=== PATIENT | female | born 1995 | race Caucasian/White ===

== ENCOUNTER 2017-11-03 17:19 | Emergency (ER) | payer MEDICAID ==
[2017-11-03 17:19] VITALS: BMI 25.8
[2017-11-03 17:39] VITALS: BP 116/73; PULSE 70; RESP 16; TEMP 98.3; O2SAT 100
--- NOTE | 2017-11-03 19:24 | ED PDOC ---
HPI: Female Pain Time Seen by Provider: 11/03/17 18:15 Chief Complaint (Nursing): Female Genitourinary Chief Complaint (Provider): Female Genitourinary History Per: Patient History/Exam Limitations: no limitations Onset/Duration Of Symptoms: Days (x4) Current Symptoms Are (Timing): Still Present Additional Complaint(s): 22 year old female presents to the emergency department with a complaint of blood tinged urine intermittently for the past 4 days. Patient denies urinary frequency, urgency, vomiting, nausea, back/flank pain, abdominal pain, dysuria, or fever. Patient noted having similar symptoms 3 years ago and was treated for a UTI however at that time she also had dysuria and urinary urgency. Patient denies taking any medications prior to arrival for symptoms. Also reports no personal or family history of kidney stones. Patient also reports atraumatic left knee pain for the past 3 days that worsens with ambulation. Patient denies any history of knee injury in the past. LMP: 10/10/17 PMD: Antonio Penny MD Abnormal Vaginal Bleeding: No Past Medical History Reviewed: Historical Data, Nursing Documentation, Vital Signs Vital Signs: Last Vital Signs Temp 98.3 F 11/03/17 17:35 Pulse 70 11/03/17 17:35 Resp 16 11/03/17 17:35 BP 116/73 11/03/17 17:35 Pulse Ox 100 11/03/17 17:35 - Medical History PMH: Anemia, Asthma (childhood) - Surgical History Surgical History: Denies: No Surg Hx Other surgeries: neck cyst removed - Family History Family History: States: Unknown Family Hx - Living Arrangements Living Arrangements: With Family - Social History Current smoker - smoking cessation education provided: No Alcohol: Social Drugs: Denies - Home Medications Home Medications: Ambulatory Orders Medication Instructions Recorded Iron,Carb/Vit C/Vit B12/Folic 1 tab DAILY 10/21/15 [Iron 100 Plus Tablet] Naproxen [Naprosyn Tab] 375 mg PO BID PRN #15 tab 10/21/15 Famotidine [Pepcid] 40 mg PO DAILY PRN #14 tab 10/23/16 Ondansetron [Zofran] 4 mg PO Q8H PRN #20 tab 10/23/16 - Allergies Allergies/Adverse Reactions: Allergies Allergy/AdvReac Type Severity Reaction Status Date / Time No Known Allergies Allergy Verified 10/23/16 21:37 Review of Systems ROS Statement: Except As Marked, All Systems Reviewed And Found Negative Constitutional: Negative for: Fever Cardiovascular: Negative for: Chest Pain Respiratory: Negative for: Cough, Shortness of Breath Gastrointestinal: Negative for: Nausea, Vomiting, Abdominal Pain Genitourinary Female: Positive for: Hematuria. Negative for: Dysuria, Frequency Musculoskeletal: Positive for: Leg Pain (left knee). Negative for: Back Pain Skin: Negative for: Rash Neurological: Negative for: Weakness, Numbness Physical Exam - Reviewed Nursing Documentation Reviewed: Yes Vital Signs Reviewed: Yes - Physical Exam Appears: Positive for: Well, Non-toxic, No Acute Distress Head Exam: Positive for: ATRAUMATIC, NORMOCEPHALIC Skin: Positive for: Normal Color, Warm, Dry Eye Exam: Positive for: EOMI, PERRL Neck: Positive for: Supple Cardiovascular/Chest: Positive for: Regular Rate, Rhythm. Negative for: Bradycardia, Tachycardia Respiratory: Positive for: Normal Breath Sounds. Negative for: Decreased Breath Sounds, Accessory Muscle Use, Respiratory Distress Gastrointestinal/Abdominal: Positive for: Bowel Sounds (active x4), Soft. Negative for: Tenderness, Mass, Distended, Guarding Back: Negative for: L CVA Tenderness, R CVA Tenderness, Decreased ROM Extremity: Positive for: Normal ROM (of left hip, knee, and ankle.), Tenderness (to medial left knee). Negative for: Calf Tenderness, Deformity, Swelling (or ecchymosis, effusion or crepitus of left knee), Other (drawer sign anteriorly and posteriorly of left knee. (-) distal NV deficit of left lower extremity.) Neurologic/Psych: Positive for: Alert (x3), Oriented, Gait (steady in ED). Negative for: Motor/Sensory Deficits - ECG O2 Sat by Pulse Oximetry: 100 (RA) Pulse Ox Interpretation: Normal Medical Decision Making Medical Decision Making: Initial Impression: Hematuria Initial Plan: * Urine * Urine culture * UA Time: 1944 --UA: positive for trace blood but not consistent with UTI. History and PE also not consistent with renal colic. Time: 1953 --Upon provider reevaluation, patient is medically stable and requires no further treatment in the ED at this time. Provider informed patient that urine culture will require 48 hours minimally to grow and advised to call for results in 2 days to see if antibiotics would be necessary. Patient will be discharged home. Counseling was provided and all questions were answered regarding diagnosis and need for follow up with urology if symptoms persist or worsen. There is agreement to discharge plan. Return if symptoms persist or worsen. Clinical Impression: Hematuria, Acute Knee Pain Scribe Attestation: Documented by Sara Langston, acting as a scribe for Jenny Cortes PA-C. Provider Scribe Attestation: All medical record entries made by the Scribe were at my direction and personally dictated by me. I have reviewed the chart and agree that the record accurately reflects my personal performance of the history, physical exam, medical decision making, and the department course for this patient. I have also personally directed, reviewed, and agree with the discharge instructions and disposition. Disposition - Clinical Impression Clinical Impression: Hematuria, Knee pain, left - Patient ED Disposition Is Patient to be Admitted: No Counseled Patient/Family Regarding: Diagnosis, Need For Followup - Disposition Referrals: Grabiel Farrell MD [Medical Doctor] - Disposition: Routine/Home Disposition Time: 19:54 Condition: FAIR Additional Instructions: FOLLOW UP URINE CULTURE RESULTS IN 48 HOURS. Instructions: Blood in the Urine (Hematuria) in Adults, Knee Pain Forms: [facility] (Gabonese) Print Language: DANISH - POA Present On Arrival: None
[2017-11-03 19:32] LABS: SQUAMOUS EPITHIAL < 1 /hpf (0-5); URINE BACTERIA RARE (<OCC); URINE BILIRUBIN NEGATIVE (NEGATIVE); URINE BLOOD SMALL (NEGATIVE); URINE CLARITY SLIGHTY-CLOUDY (Clear); URINE COLOR YELLOW (YELLOW); URINE GLUCOSE (UA) NEG (Normal); URINE LEUKOCYTE ESTERASE NEG Leu/uL (Negative); URINE NITRATE NEGATIVE (NEGATIVE); URINE PROTEIN NEGATIVE (NEGATIVE)
== END 2017-11-03 20:10 | disposition home or self-care (01) ==
LOC: H.ER 17:19
DX: M25.562 Pain in left knee (principal); J45.909 Unspecified asthma, uncomplicated

== ENCOUNTER 2018-01-20 12:36 | Emergency (ER) | payer MEDICAID ==
[2018-01-20 12:38] VITALS: BMI 25.8
[2018-01-20 12:47] VITALS: BP 158/72; PULSE 79; RESP 20; TEMP 97.9; O2SAT 99
--- NOTE | 2018-01-20 13:59 | ED PDOC ---
HPI: Female Pain Time Seen by Provider: 01/20/18 12:52 Chief Complaint (Nursing): Female Genitourinary Chief Complaint (Provider): Dysuria, Hematuria and Frequency History Per: Patient History/Exam Limitations: no limitations Onset/Duration Of Symptoms: Hrs Current Symptoms Are (Timing): Still Present Severity: None Associated Symptoms: Urinary Symptoms (dysuria, fruquemc, hematuria). denies: Fever, Nausea, Vomiting, Back Pain, Chest Pain Alleviating Factors: None Additional Complaint(s): 22 year old female presents to the emergency department complaining of hematuria , frequency and dysuris which began this morning. Patient states that on January 09 her period began and it ended yesterday. She further reports that this is unsual for her as her period usually lasts 4-5 days. She also states that her bleeding was heavier than usual and on a normal period she usually sues 4-5 pads but this episode she used 5-6 pads per day. Patient only reports pain with urination. Denies current vaginal bleeding, weakness, shortness of breast, chest pain, fever, back pain, flank pain. Abnormal Vaginal Bleeding: Yes Past Medical History Reviewed: Historical Data, Nursing Documentation, Vital Signs Vital Signs: Last Vital Signs Temp 97.9 F 01/20/18 12:45 Pulse 79 01/20/18 12:45 Resp 20 01/20/18 12:45 BP 158/72 H 01/20/18 12:45 Pulse Ox 99 01/20/18 12:45 - Medical History PMH: Anemia, Asthma (childhood) - Surgical History Surgical History: No Surg Hx - Family History Family History: States: Unknown Family Hx - Living Arrangements Living Arrangements: With Family - Social History Current smoker - smoking cessation education provided: No Ex-Smoker (has not smoked in the last 12 months): No Alcohol: None - Home Medications Home Medications: Ambulatory Orders Medication Instructions Recorded Iron,Carb/Vit C/Vit B12/Folic 1 tab DAILY 10/21/15 [Iron 100 Plus Tablet] Naproxen [Naprosyn Tab] 375 mg PO BID PRN #15 tab 10/21/15 Famotidine [Pepcid] 40 mg PO DAILY PRN #14 tab 10/23/16 Ondansetron [Zofran] 4 mg PO Q8H PRN #20 tab 10/23/16 Nitrofurantoin Macrocrystals 100 mg PO BID #14 cap 01/20/18 [Macrobid] Phenazopyridine [Pyridium] 200 mg PO BID #6 tab 01/20/18 - Allergies Allergies/Adverse Reactions: Allergies Allergy/AdvReac Type Severity Reaction Status Date / Time No Known Allergies Allergy Verified 10/23/16 21:37 Review of Systems Constitutional: Negative for: Fever, Weakness Cardiovascular: Negative for: Chest Pain Respiratory: Negative for: Shortness of Breath Gastrointestinal: Negative for: Nausea, Vomiting Genitourinary Female: Positive for: Dysuria, Frequency, Hematuria Musculoskeletal: Negative for: Back Pain Physical Exam - Reviewed Nursing Documentation Reviewed: Yes Vital Signs Reviewed: Yes - Physical Exam Appears: Positive for: Well, Non-toxic, No Acute Distress (Patient is talking on the phone) Skin: Positive for: Normal Color, Warm. Negative for: Rash Eye Exam: Positive for: Normal appearance Gastrointestinal/Abdominal: Positive for: Normal Exam, Bowel Sounds, Soft. Negative for: Tenderness, Mass, Guarding, Rebound Back: Positive for: Normal Inspection. Negative for: L CVA Tenderness, R CVA Tenderness, Vertebral Tenderness Neurologic/Psych: Positive for: Alert, Oriented - Laboratory Results Urine POC: Negative Urine dip results: Positive for: Leukocyte Esterase (small), Blood (large), Protein (300). Negative for: Nitrate, Ketones, Glucose, Bilirubin - ECG O2 Sat by Pulse Oximetry: 99 (RA) Pulse Ox Interpretation: Normal Medical Decision Making Medical Decision Makin Initial Impression 22 year old female presenting with frequency, hematuria, dysuria Initial Plan: * Udip * Urine Culture * Reevaluation Documented by Katelyn Samuel acting as a scribe for Silvio Hicks PA-C.. All medical record entries made by the Scribe were at my direction and personally dictated by me. I have reviewed the chart and agree that the record accurately reflects my personal performance of the history, physical exam, medical decision making, and the department course for this patient. I have also personally directed, reviewed, and agree with the discharge instructions and disposition. Disposition - Clinical Impression Clinical Impression: UTI (urinary tract infection) - Patient ED Disposition Is Patient to be Admitted: No Counseled Patient/Family Regarding: Studies Performed, Diagnosis - Disposition Referrals: [facility] [Outside] Disposition: Routine/Home Disposition Time: 14:00 Condition: STABLE Additional Instructions: Follow up with your doctor for further evaluation. Return to ED immediately if symptoms worsen. Prescriptions: Nitrofurantoin Macrocrystals [Macrobid] 100 mg PO BID #14 cap Phenazopyridine [Pyridium] 200 mg PO BID #6 tab Instructions: Urinary Tract Infection, Adult (DC) Forms: [employer] [employer] (Bahamian) Print Language: FILIPINO - POA Present On Arrival: None
== END 2018-01-20 13:51 | disposition home or self-care (01) ==
LOC: H.ER 12:36
DX: N39.0 Urinary tract infection, site not specified (principal)

== ENCOUNTER 2018-07-05 09:17 | Emergency (ER) | payer MEDICAID ==
[2018-07-05 09:27] VITALS: BMI 25.6
[2018-07-05 09:33] VITALS: O2SAT 98
--- NOTE | 2018-07-05 11:08 | ED PDOC ---
HPI: Female Pain Time Seen by Provider: 07/05/18 09:47 Chief Complaint (Nursing): Female Genitourinary Chief Complaint (Provider): Female Genitourinary History Per: Patient History/Exam Limitations: no limitations Onset/Duration Of Symptoms: Days (x 2) Current Symptoms Are (Timing): Still Present Quality Of Discomfort: "Pain" Associated Symptoms: Urinary Symptoms Additional Complaint(s): 22 year old female with a history of UTIs presents to the ED with dysuria, hematuria and lower abdominal pain since yesterday. The patient denies a fever, nausea and vomiting. Offers no other complaints. PMD: Dr. Trixie Barclay Past Medical History Vital Signs: Last Vital Signs Temp 97.3 F L 07/05/18 09:25 Pulse 64 07/05/18 09:25 Resp 16 07/05/18 09:25 BP 120/75 07/05/18 09:25 Pulse Ox 98 07/05/18 09:31 - Medical History PMH: Anemia, Asthma (childhood) Denies: Chronic Kidney Disease - Surgical History Surgical History: No Surg Hx - Family History Family History: States: Unknown Family Hx - Home Medications Home Medications: Ambulatory Orders Medication Instructions Recorded Nitrofurantoin Macrocrystals 100 mg PO BID #13 cap 07/05/18 [Macrobid] Phenazopyridine [Pyridium] 200 mg PO TID PRN #6 tab 07/05/18 - Allergies Allergies/Adverse Reactions: Allergies Allergy/AdvReac Type Severity Reaction Status Date / Time No Known Allergies Allergy Verified 07/05/18 09:30 Review of Systems ROS Statement: Except As Marked, All Systems Reviewed And Found Negative Gastrointestinal: Positive for: Abdominal Pain (mild lower ) Genitourinary Female: Positive for: Dysuria, Hematuria Physical Exam - Reviewed Nursing Documentation Reviewed: Yes Vital Signs Reviewed: Yes - Physical Exam Appears: Positive for: Non-toxic, No Acute Distress Head Exam: Positive for: ATRAUMATIC, NORMAL INSPECTION, NORMOCEPHALIC Skin: Positive for: Normal Color, Warm, Dry Eye Exam: Positive for: EOMI, Normal appearance, PERRL Neck: Positive for: Normal, Painless ROM, Supple Cardiovascular/Chest: Positive for: Regular Rate, Rhythm. Negative for: Murmur Respiratory: Positive for: Normal Breath Sounds. Negative for: Respiratory Distress Gastrointestinal/Abdominal: Positive for: Soft, Tenderness (mild suprapubic tenderness). Negative for: Guarding, Rebound Extremity: Positive for: Normal ROM (x 4). Negative for: Deformity Neurologic/Psych: Positive for: Alert, Oriented. Negative for: Motor/Sensory Deficits - ECG O2 Sat by Pulse Oximetry: 98 (RA) Pulse Ox Interpretation: Normal Medical Decision Making Medical Decision Makin:49 Impression: abdominal pain, dysuria and hematuria Initial Plan: --Urine preg --Urine dip --Urine cx --UA Scribe Attestation: Documented by Marjan Killian acting as a scribe for Vonda Ramsey MD Provider Scribe Attestation: All medical record entries made by the Scribe were at my direction and personally dictated by me. I have reviewed the chart and agree that the record accurately reflects my personal performance of the history, physical exam, medical decision making, and the department course for this patient. I have also personally directed, reviewed, and agree with the discharge instructions and disposition. Disposition - Clinical Impression Clinical Impression: Urinary tract infection - Disposition Disposition: Routine/Home Disposition Time: 12:00 Condition: STABLE Additional Instructions: FOLLOW-UP WITH PMD WITHIN 2 DAYS FOR REEVALUATION. Prescriptions: Nitrofurantoin Macrocrystals [Macrobid] 100 mg PO BID #13 cap Phenazopyridine [Pyridium] 200 mg PO TID PRN #6 tab PRN Reason: Bladder Spasm Instructions: Urinary Tract Infections in Adults Forms: [facility] (Egyptian), [facility] ED School/Work Excuse
[2018-07-05 11:12] LABS: SQUAMOUS EPITHIAL < 1 /hpf (0-5); URINE BACTERIA RARE (<OCC); URINE BILIRUBIN NEGATIVE (NEGATIVE); URINE BLOOD MODERATE (NEGATIVE); URINE CLARITY SLIGHTY-CLOUDY (Clear); URINE COLOR STRAW (YELLOW); URINE GLUCOSE (UA) NEG (Normal); URINE LEUKOCYTE ESTERASE LARGE Leu/uL (Negative); URINE PROTEIN NEGATIVE (NEGATIVE); URINE UROBILINOGEN 0.2-1.0 mg/dL (0.2-1.0)
[2018-07-05 12:11] VITALS: BP 120/70; PULSE 72; RESP 20; TEMP 98
== END 2018-07-05 12:11 | disposition home or self-care (01) ==
LOC: H.ER 09:17
DX: N39.0 Urinary tract infection, site not specified (principal)

== ENCOUNTER 2018-10-30 17:54 | Emergency (ER) | payer MEDICAID ==
[2018-10-30 17:54] VITALS: BMI 25.6
--- NOTE | 2018-10-30 19:40 | ED PDOC ---
HPI: General Adult Time Seen by Provider: 10/30/18 19:16 Chief Complaint (Nursing): Dizziness/Lightheaded Chief Complaint (Provider): Dizziness, lightheaded History Per: Patient History/Exam Limitations: no limitations Onset/Duration Of Symptoms: Days (3) Have you had recent travel within the past 21 days to any of the following countries: [place], [place], [place] or [place]?: No Current Symptoms Are (Timing): Still Present Additional History Per: Patient Additional Complaint(s): 23yo female, otherwise well, comes to ER reporting dizziness and lightheadedness since 3 days. She reports associated headache and states the dizziness is worsened with movement. She denies any such episodes in the past; patient also took "2 pain relief pills" with no relief of symptoms. She denies any nausea, vomiting, weakness, and offers no additional complaints. PMD: Trixie Bacrlay Past Medical History Reviewed: Historical Data, Nursing Documentation, Vital Signs Vital Signs: Last Vital Signs Temp 98.2 F 10/30/18 18:11 Pulse 58 L 10/30/18 18:11 Resp 18 10/30/18 18:11 BP 114/78 10/30/18 18:11 Pulse Ox 100 10/30/18 18:11 - Medical History PMH: Anemia, Asthma (childhood) Denies: Chronic Kidney Disease - Surgical History Surgical History: No Surg Hx - Family History Family History: States: Unknown Family Hx - Home Medications Home Medications: Ambulatory Orders Medication Instructions Recorded Nitrofurantoin Macrocrystals 100 mg PO BID #13 cap 07/05/18 [Macrobid] Phenazopyridine [Pyridium] 200 mg PO TID PRN #6 tab 07/05/18 Meclizine [Meclizine*] 25 mg PO Q6 PRN #20 tab 10/30/18 - Allergies Allergies/Adverse Reactions: Allergies Allergy/AdvReac Type Severity Reaction Status Date / Time No Known Allergies Allergy Verified 10/30/18 18:29 Review of Systems ROS Statement: Except As Marked, All Systems Reviewed And Found Negative Constitutional: Negative for: Weakness Eyes: Negative for: Vision Change Cardiovascular: Positive for: Light Headedness Neurological: Positive for: Headache, Dizziness. Negative for: Weakness Physical Exam - Reviewed Nursing Documentation Reviewed: Yes Vital Signs Reviewed: Yes - Physical Exam Appears: Positive for: Non-toxic, No Acute Distress Head Exam: Positive for: ATRAUMATIC, NORMAL INSPECTION, NORMOCEPHALIC Skin: Positive for: Normal Color Eye Exam: Positive for: Normal appearance, EOMI, PERRL. Negative for: Nystagmus Neck: Positive for: Normal, Painless ROM, Supple Cardiovascular/Chest: Positive for: Regular Rate, Rhythm Respiratory: Positive for: Normal Breath Sounds Neurologic/Psych: Positive for: Alert, Oriented. Negative for: Motor/Sensory Deficits - Laboratory Results Result Diagrams: 10/30/18 20:59 10/30/18 20:59 - ECG O2 Sat by Pulse Oximetry: 100 (RA) Pulse Ox Interpretation: Normal Medical Decision Making Medical Decision Makinyo female with dizziness, likely benign positional vertigo Plan: -- CT Head w/o contrast -- Labs -- IV fluids -- Meclizine 50mg PO 2148 CT Head FINDINGS: BRAIN No acute intraparenchymal hemorrhage. No mass lesion. No CT evidence for acute territorial infarct. No midline shift or extra-axial collections. VENTRICLES: No hydrocephalus. ORBITS: The orbits are unremarkable. SINUSES AND MASTOIDS: The paranasal sinuses and mastoid air cells are clear. BONES: No fracture. SOFT TISSUES: Unremarkable. IMPRESSION: No acute intracranial abnormality. Scribe Attestation: Documented by Paulina Ventura acting as a scribe for Vonda Ramsey MD. Provider Attestation: All medical record entries made by the Scribe were at my direction and personally dictated by me. I have reviewed the chart and agree that the record accurately reflects my personal performance of the history, physical exam, medic al decision making, and the department course for this patient. I have also personally directed, reviewed, and agree with the discharge instructions and disposition. Disposition - Clinical Impression Clinical Impression: Vertigo - Disposition Referrals: [facility] [Outside] Disposition: Routine/Home Disposition Time: 22:13 Condition: IMPROVED Prescriptions: Meclizine [Meclizine*] 25 mg PO Q6 PRN #20 tab PRN Reason: Dizziness Instructions: Vertigo (a Type of Dizziness) Forms: [facility] (Tamazight)
[2018-10-30] MEDS ORDERED: Sodium Chloride 0.9% 1,000 ML IV STA (19:43)
[2018-10-30 21:13] LABS: ALB/GLOB RATIO 1.4 (1.0-2.1); ALBUMIN 4.7 g/dL (3.5-5.0); ALT/SGPT 29 U/L (9-52); AST/SGOT 24 U/L (14-36); BASO # 0.1 K/uL (0.0-0.2); BASO % 0.8 % (0.0-2.0); BLOOD UREA NITROGEN 11 mg/dl (7-17); CALCIUM 9.7 mg/dL (8.4-10.2); EOS # 0.2 K/uL (0.0-0.7); EOS % 2.1 % (0.0-4.0); GFR NON-AFRICAN AMERICAN > 60; HEMOGLOBIN 13.2 g/dL (12.0-16.0); LYMPH # 3.2 K/uL (1.0-4.3); LYMPH % 38.7 % (20.0-40.0); MEAN CELL VOLUME 88.3 fl (81.0-99.0); MEAN CORPUSCULAR HEMOGLOBIN 28.7 pg (27.0-31.0); MEAN CORPUSCULAR HGB CONC 32.5 g/dL (33.0-37.0); MEAN PLATELET VOLUME 9.6 fl (7.2-11.7); MONO # 0.4 K/uL (0.0-0.8); MONO % 5.3 % (0.0-10.0); NEUT # 4.4 K/uL (1.8-7.0); NEUT % 53.1 % (50.0-75.0); RBC 4.6 Mil/uL (3.80-5.20); RED CELL DISTRIBUTION WIDTH 13.5 % (11.5-14.5); SQUAMOUS EPITHIAL 2 /hpf (0-5); URINE BILIRUBIN NEGATIVE (NEGATIVE); URINE BLOOD MODERATE (NEGATIVE); URINE CLARITY SLIGHTY-CLOUDY (Clear); URINE COLOR YELLOW (YELLOW); URINE GLUCOSE (UA) NEG (NEGATIVE); URINE LEUKOCYTE ESTERASE NEG Leu/uL (Negative); URINE PROTEIN NEGATIVE (NEGATIVE); URINE UROBILINOGEN 0.2-1.0 mg/dL (0.2-1.0); WHITE BLOOD COUNT 8.3 K/uL (4.8-10.8)
[2018-10-30 23:01] VITALS: BP 121/75; PULSE 64; RESP 16; TEMP 98.3
--- NOTE | 2018-10-31 07:49 | CT ---
Date of service: 10/30/2018 PROCEDURE: CT HEAD WITHOUT CONTRAST. HISTORY: Vertigo COMPARISON: None available. TECHNIQUE: Axial computed tomography images were obtained through the head/brain without intravenous contrast. Radiation dose: Total exam DLP = 791.18 mGy-cm. This CT exam was performed using one or more of the following dose reduction techniques: Automated exposure control, adjustment of the mA and/or kV according to patient size, and/or use of iterative reconstruction technique. FINDINGS: HEMORRHAGE: No intracranial hemorrhage. BRAIN: Normal mitchell-white matter differentiation and density are appreciated throughout the cerebrum and cerebellum with the brainstem appearing unremarkable as well. There is no mass effect. There is no suspicious extra-axial fluid collection and the midline brain anatomy appears diffusely unremarkable. VENTRICLES: Unremarkable. No hydrocephalus. CALVARIUM: Unremarkable. PARANASAL SINUSES: Unremarkable as visualized. No significant inflammatory changes. MASTOID AIR CELLS: Unremarkable as visualized. No inflammatory changes. OTHER FINDINGS: None. IMPRESSION: Unremarkable unenhanced head CT.
[2018-10-31 18:11] VITALS: O2SAT 100
== END 2018-10-30 23:01 | disposition home or self-care (01) ==
LOC: H.ER 17:54
DX: R42 Dizziness and giddiness (principal)
CPT/HCPCS: 70450; 80053; 81003; 81025; 85025; 99285; J7030